=== PATIENT | female | born 1995 | race Caucasian/White ===

== ENCOUNTER 2019-09-09 22:32 | Emergency (ER) | payer OTHER ==
[~2019-09-09] VITALS: Ht 167.6 cm; Wt 68.0 kg
[2019-09-09 22:41] VITALS: BP 125/65
--- NOTE | 2019-09-09 22:44 | NUR ---
TO LOBBY A/W BED AMBULATORY
--- NOTE | 2019-09-10 00:35 | NUR ---
PT AMBUALTED TO BED 10.
--- NOTE | 2019-09-10 01:05 | NUR ---
PT C/O ABSCESS TO LT SIDE OF VAGINA X4 DAYS. 10/10 THROBBING PAIN. PT WAS SEEN AT URGENT [facility]ARE LAST NIGHT W/ DIAGNOSIS OF LT [place] GLAND ABSCESS. PT GIVEN IBURPROFEN AND BACTRIM AND LAST TAKEN AT 1000 YESTERDAY. PT STATES IT HAS GOTTEN BIGGER SINCE LAST NIGHT AND PAIN IS INCREASING. PT LAYING IN BED IN POSITION FOR COMFORT, VSS. MEDHX: DENIES ALLERGIES: DENIES
[2019-09-10] MEDS ORDERED: HYDROcodone/APAP 5/325 MG 1 TAB TAB PO ONE (01:50)
[2019-09-10] MEDS ORDERED: KETOROLAC 30 MG/ML VIAL IM ONE (01:50)
--- NOTE | 2019-09-10 02:15 | NUR ---
PT RESTING IN BED IN COMFOTABLE POSITION, BED LOCKED AND IN LOW POSITION, ONE SIDE RAIL RAISED. VSS. WILL CONTINUE TO MONITOR.
--- NOTE | 2019-09-10 02:20 | NUR ---
PT STATES SOME RELIEF OF PAIN AT THIS TIME. 03/15 WHEN LAYING ON SIDE.
[2019-09-10] MEDS ORDERED: LIDOCAINE MPF 1% 10 MG/ML VIAL INJ ONE (03:05)
--- NOTE | 2019-09-10 03:53 | NUR ---
PT IN COMFORTABLE POSITION, DENIES PAIN AT THIS TIME. VSS. WILL CONTINUE TO MONITOR.
--- NOTE | 2019-09-10 04:28 | NUR ---
DR MOYA AT BEDSIDE PERFORMING PROCEDURE, ACCOMPANIED BY LAVELL OLSEN.
[2019-09-10 04:44] VITALS: BP 122/71
--- NOTE | 2019-09-10 04:44 | NUR ---
Patient discharged with v/s stable. Written and verbal after care instructions given and explained. Patient alert, oriented and verbalized understanding of instructions. Ambulatory with to home. All questions addressed prior to discharge. ID band removed. Patient advised to follow up with PMD. Rx of NORCO given. Patient educated on indication of medication including possible reaction and side effects. Opportunity to ask questions provided and answered. PT ACCOMPANIED BY FAMILY MEMBER
== END 2019-09-10 04:44 | disposition home or self-care (01) ==
LOC: MED 22:32
DX: L02.214 Cutaneous abscess of groin (principal)
CPT/HCPCS: 10060; 96372; 99283; J1885; J2001